=== PATIENT | male | born 1950 | race Caucasian/White ===

== ENCOUNTER 2019-09-06 15:39 | Inpatient (IN) | payer MEDICARE ==
[~2019-09-06] VITALS: Ht 165.1 cm; Wt 67.2 kg
[2019-09-06] MEDS ORDERED: SODIUM CHLORIDE 0.9% 500 ML IV ONE (16:49)
[2019-09-06 17:12] LABS: HEMATOCRIT. 40.7 % (42.0-52.0); HEMOGLOBIN. 14.1 g/dL (14.0-18.0); MEAN CORPUSCULAR HEMOGLOBIN 32.9 pg (28.0-32.0); MEAN CORPUSCULAR VOLUME 95.2 fL (80.0-94.0); MEAN PLATELET VOLUME 9.9 fl (7.4-10.4); MONOCYTES % 5.6 % (2.0-8.0); NEUTROPHILS % 87.4 % (40.0-76.0); RED BLOOD CELL COUNT 4.27 mill/uL (4.7-6.1); RED CELL DISTRIBUTION WIDTH 13.8 % (11.6-14.6)
[2019-09-06 17:14] LABS: INR 1.2; PROTHROMBIN TIME 12.1 sec (9.6-11.0)
[2019-09-06 17:21] LABS: CHLORIDE 91 mEq/L (98-107)
[2019-09-06 17:28] LABS: ETHANOL BLOOD < 10 mg/dL
[2019-09-06 17:56] LABS: CREATINE KINASE 10482 IU/L (39-308)
[2019-09-06] MEDS ORDERED: LORAZEPAM 2MG/ML CPJ IV ONE ×2 (18:00→19:00)
[2019-09-06] MEDS ORDERED: DIPHENHYDRAMINE 50MG/ML VIAL IV ONE (18:45)
[2019-09-06] MEDS ORDERED: SODIUM CHLORIDE 0.9% 2,000 ML IV ONE (19:16)
[2019-09-06] MEDS ORDERED: DOCUSATE SODIUM 100MG CAPSULE PO PRN (20:30)
[2019-09-06] MEDS ORDERED: TRAMADOL 50MG TABLET PO PRN (20:30)
[2019-09-06] MEDS ORDERED: ACETAMINOPHEN 325MG TABLET PO PRN ×2 (20:30)
[2019-09-06] MEDS ORDERED: KETOROLAC 15MG/ML VIAL IV PRN (20:30)
[2019-09-06] MEDS ORDERED: CLONIDINE 0.1MG TABLET PO PRN (20:30)
[2019-09-06] MEDS ORDERED: IPRATROPIUM/ALBUTEROL 0.5-3(2.5)MG/3ML NEB ORI PRN (20:30)
[2019-09-06] MEDS ORDERED: NA PHOS,M-B/NA PHOS,DI-BA ENEMA 118ML PR PRN (20:30)
[2019-09-06] MEDS ORDERED: ONDANSETRON HCL 4MG/2ML INJ IV PRN (20:30)
[2019-09-06] MEDS ORDERED: GUAIFENESIN 200MG/10ML SUGAR FREE UDC PO PRN (20:30)
[2019-09-06] MEDS ORDERED: NITROGLYCERIN 0.4MG TABLET SL SL PRN (20:30)
[2019-09-06] MEDS ORDERED: MAGNESIUM/ALUMINUM HYDROXIDE/SIMETHICONE 30ML UDC PO PRN (20:30)
[2019-09-06 21:34] LABS: HEPATITIS B SURFACE ANTIGEN NEGATIVE
[2019-09-06 21:43] LABS: VITAMIN B12 SERUM 1068 pg/mL (211-911)
[2019-09-06] MEDS ORDERED: CEFTRIAXONE 1 G PREMIX 50 ML IV SCH (22:00)
[2019-09-06 22:03] LABS: HEPATITIS A AB IGM NEGATIVE (NEGATIVE)
[2019-09-06 23:00] VITALS: BP 123/81
[2019-09-06 23:15] VITALS: BP 135/82
[2019-09-06 23:45] VITALS: BP 101/58
[2019-09-07] VITALS (13 sets, daily range): BP systolic 100–154; BP diastolic 52–96
[2019-09-07] MEDS: ASCORBIC ACID 500 MG TABLET PO SCH ×3 (00:03→21:08)
[2019-09-07] MEDS: FAMOTIDINE 20MG TABLET PO SCH ×3 (00:03→21:08)
[2019-09-07] MEDS: SODIUM CHLORIDE 0.9% 1,000 ML IV SCH ×2 (00:03→10:36)
[2019-09-07 00:05] LABS: CREATINE KINASE MB FRACTION 79.9 ng/mL (0.5-3.6)
[2019-09-07 00:34] LABS: CREATINE KINASE > 14000 IU/L (39-308)
[2019-09-07] MEDS ORDERED: CEFTRIAXONE 1 G PREMIX 50 ML IV SCH (02:00)
[2019-09-07 06:52] LABS: BASOPHILS % 0.2 % (0.0-2.0); EOSINOPHILS % 0.2 % (0.0-5.0); HEMATOCRIT. 41.7 % (42.0-52.0); HEMOGLOBIN. 14.1 g/dL (14.0-18.0); LYMPHOCYTES % 20.5 % (20.0-50.0); MEAN CORPUSCULAR HEMOGLOBIN 32.7 pg (28.0-32.0); MEAN CORPUSCULAR VOLUME 96.4 fL (80.0-94.0); MEAN PLATELET VOLUME 10.6 fl (7.4-10.4); MONOCYTES % 7.3 % (2.0-8.0); NEUTROPHILS % 71.8 % (40.0-76.0); RED BLOOD CELL COUNT 4.33 mill/uL (4.7-6.1)
[2019-09-07 06:58] LABS: CHLORIDE 99 mEq/L (98-107)
[2019-09-07 07:03] LABS: PLATELET 46 x1000/uL (130-400)
[2019-09-07 07:06] LABS: PHOSPHORUS 2.5 mg/dL (2.5-4.9)
[2019-09-07 07:11] LABS: CREATINE KINASE MB FRACTION 58.4 ng/mL (0.5-3.6)
[2019-09-07] MEDS ORDERED: POTASSIUM CHLORIDE 20MEQ/PACKET PO NR (07:45)
[2019-09-07 08:04] LABS: CREATINE KINASE 23672 IU/L (39-308)
[2019-09-07] MEDS: ZINC SULFATE 220 MG ( 50 ) CAPSULE PO SCH (09:20)
[2019-09-07] MEDS: CITRIC ACID/SODIUM CITRATE SOLN 15ML UDC PO SCH ×3 (09:20→17:00)
[2019-09-07] MEDS: ASPIRIN 81MG EC TABLET PO SCH (09:20)
[2019-09-07] MEDS ORDERED: LORAZEPAM 2MG/ML CPJ IV NR (10:15)
[2019-09-07 11:33] LABS: PLATELET 46 x1000/uL (130-400)
[2019-09-07] MEDS: CHLORDIAZEPOXIDE 25MG CAPSULE PO SCH ×2 (14:58→21:07)
[2019-09-07 15:38] LABS: *AMPHETAMINES SCREEN URINE NEGATIVE (NEGATIVE); *BARBITURATES SCREEN URINE NEGATIVE (NEGATIVE); *BENZODIAZEPINES SCREEN URINE NEGATIVE (NEGATIVE); *COCAINE SCREEN URINE NEGATIVE (NEGATIVE)
[2019-09-07 15:40] LABS: CANNABINOID URINE SCREEN NEGATIVE (NEGATIVE); METHADONE URINE SCREEN NEGATIVE (NEGATIVE); OPIATES URINE SCREEN NEGATIVE (NEGATIVE); PHENCYCLIDINE URINE SCREEN NEGATIVE (NEGATIVE)
[2019-09-07] MEDS: LORAZEPAM 2MG/ML CPJ IV PRN (16:00)
[2019-09-07] MEDS: ZOLPIDEM TARTRATE 5MG TABLET PO PRN (21:08)
[2019-09-08] VITALS (12 sets, daily range): BP systolic 124–184; BP diastolic 53–116
[2019-09-08] MEDS: SODIUM CHLORIDE 0.9% 1,000 ML IV SCH ×2 (00:42→12:59)
[2019-09-08] MEDS: CEFTRIAXONE 1,000 MG in DEXTROSE 5% WATER 50 ML IV SCH (03:24)
[2019-09-08 07:06] LABS: CHLORIDE 110 mEq/L (98-107)
[2019-09-08 07:07] LABS: BASOPHILS % 0.5 % (0.0-2.0); EOSINOPHILS % 0.4 % (0.0-5.0); HEMATOCRIT. 36.8 % (42.0-52.0); HEMOGLOBIN. 12.4 g/dL (14.0-18.0); LYMPHOCYTES % 28.8 % (20.0-50.0); MEAN CORPUSCULAR HEMOGLOBIN 32.8 pg (28.0-32.0); MEAN CORPUSCULAR VOLUME 97.1 fL (80.0-94.0); MEAN PLATELET VOLUME 10.8 fl (7.4-10.4); MONOCYTES % 7.5 % (2.0-8.0); NEUTROPHILS % 62.8 % (40.0-76.0); RED BLOOD CELL COUNT 3.79 mill/uL (4.7-6.1); RED CELL DISTRIBUTION WIDTH 14.2 % (11.6-14.6)
[2019-09-08] MEDS: CHLORDIAZEPOXIDE 25MG CAPSULE PO SCH ×3 (07:19→21:21)
[2019-09-08 07:55] LABS: PLATELET 48 x1000/uL (130-400)
[2019-09-08] MEDS: ZINC SULFATE 220 MG ( 50 ) CAPSULE PO SCH (08:24)
[2019-09-08] MEDS: NICOTINE 14MG PATCH TD SCH (08:24)
[2019-09-08] MEDS: FAMOTIDINE 20MG TABLET PO SCH ×2 (08:25→21:21)
[2019-09-08] MEDS: ASCORBIC ACID 500 MG TABLET PO SCH ×2 (08:25→21:21)
[2019-09-08] MEDS: FOLIC ACID 1MG TABLET PO SCH (08:25)
[2019-09-08] MEDS: CITRIC ACID/SODIUM CITRATE SOLN 15ML UDC PO SCH ×3 (08:25→17:58)
[2019-09-08] MEDS: MULTIVITAMINS,THER W-MINERALS TABLET PO SCH (08:25)
[2019-09-08] MEDS: ASPIRIN 81MG EC TABLET PO SCH (08:25)
[2019-09-08] MEDS: THIAMINE HCL 100MG TABLET PO SCH (08:25)
[2019-09-08] MEDS ORDERED: POTASSIUM CHLORIDE 20MEQ/PACKET PO NR (09:15)
[2019-09-08] MEDS ORDERED: KCL 20MEQ/100ML PREMIX 100 ML IV ONE (10:00)
[2019-09-08] MEDS: MAGNESIUM OXIDE 400MG TABLET PO SCH (10:12)
[2019-09-08 13:58] LABS: PLATELET ESTIMATE MARKEDLY DECREASED
[2019-09-08] MEDS ORDERED: LIDOCAINE HCL/EPINEPHRINE 1%-EPI 1:100,000 20 ML VIAL INFIL NR (16:00)
[2019-09-08] MEDS: LORAZEPAM 2MG/ML CPJ IV PRN (17:57)
[2019-09-08] MEDS: ZOLPIDEM TARTRATE 5MG TABLET PO PRN (21:21)
[2019-09-09] VITALS (12 sets, daily range): BP systolic 130–162; BP diastolic 60–87
[2019-09-09] MEDS: CEFTRIAXONE 1,000 MG in DEXTROSE 5% WATER 50 ML IV SCH (02:43)
[2019-09-09] MEDS: LORAZEPAM 2MG/ML CPJ IV PRN (04:14)
[2019-09-09] MEDS: SODIUM CHLORIDE 0.9% 1,000 ML IV SCH ×2 (06:01→15:56)
[2019-09-09] MEDS: CHLORDIAZEPOXIDE 25MG CAPSULE PO SCH (06:01)
[2019-09-09 07:05] LABS: CHLORIDE 111 mEq/L (98-107)
[2019-09-09 07:14] LABS: BASOPHILS % 0.4 % (0.0-2.0); EOSINOPHILS % 0.7 % (0.0-5.0); HEMATOCRIT. 34.1 % (42.0-52.0); HEMOGLOBIN. 11.5 g/dL (14.0-18.0); LYMPHOCYTES % 27.6 % (20.0-50.0); MEAN CORPUSCULAR HEMOGLOBIN 32.8 pg (28.0-32.0); MEAN CORPUSCULAR VOLUME 97.2 fL (80.0-94.0); MEAN PLATELET VOLUME 9.5 fl (7.4-10.4); MONOCYTES % 8.7 % (2.0-8.0); NEUTROPHILS % 62.6 % (40.0-76.0); PLATELET 56 x1000/uL (130-400); RED BLOOD CELL COUNT 3.51 mill/uL (4.7-6.1); RED CELL DISTRIBUTION WIDTH 14.3 % (11.6-14.6)
[2019-09-09] MEDS ORDERED: POTASSIUM CHLORIDE 20MEQ TABLET SR PO NR (07:30)
[2019-09-09] MEDS: CITRIC ACID/SODIUM CITRATE SOLN 15ML UDC PO SCH ×3 (08:31→16:12)
[2019-09-09] MEDS: MULTIVITAMINS,THER W-MINERALS TABLET PO SCH (08:31)
[2019-09-09] MEDS: ZINC SULFATE 220 MG ( 50 ) CAPSULE PO SCH (08:31)
[2019-09-09] MEDS: FAMOTIDINE 20MG TABLET PO SCH ×2 (08:31→22:08)
[2019-09-09] MEDS: MAGNESIUM OXIDE 400MG TABLET PO SCH (08:32)
[2019-09-09] MEDS: ASPIRIN 81MG EC TABLET PO SCH (08:32)
[2019-09-09] MEDS: ASCORBIC ACID 500 MG TABLET PO SCH ×2 (08:32→22:08)
[2019-09-09] MEDS: THIAMINE HCL 100MG TABLET PO SCH (08:32)
[2019-09-09] MEDS: FOLIC ACID 1MG TABLET PO SCH (08:32)
[2019-09-09] MEDS: NICOTINE 14MG PATCH TD SCH (08:32)
[2019-09-09] MEDS ORDERED: POTASSIUM CHLORIDE INJ 40 MEQ in DEXT 5% WATER 250 ML IV NR (09:30)
[2019-09-09] MEDS: CHLORDIAZEPOXIDE 5 MG CAPSULE PO SCH ×2 (13:41→22:08)
[2019-09-10] VITALS (12 sets, daily range): BP systolic 103–146; BP diastolic 55–82
[2019-09-10] MEDS: CEFTRIAXONE 1,000 MG in DEXTROSE 5% WATER 50 ML IV SCH (01:43)
[2019-09-10] MEDS: SODIUM CHLORIDE 0.9% 1,000 ML IV SCH ×2 (01:44→21:17)
[2019-09-10] MEDS: CHLORDIAZEPOXIDE 5 MG CAPSULE PO SCH ×3 (06:37→21:18)
[2019-09-10 06:49] LABS: BASOPHILS % 0.6 % (0.0-2.0); EOSINOPHILS % 1.7 % (0.0-5.0); HEMATOCRIT. 36.5 % (42.0-52.0); HEMOGLOBIN. 12.3 g/dL (14.0-18.0); LYMPHOCYTES % 32.5 % (20.0-50.0); MEAN CORPUSCULAR VOLUME 97.9 fL (80.0-94.0); MEAN PLATELET VOLUME 8.9 fl (7.4-10.4); MONOCYTES % 12.4 % (2.0-8.0); NEUTROPHILS % 52.8 % (40.0-76.0); PLATELET 79 x1000/uL (130-400); RED BLOOD CELL COUNT 3.73 mill/uL (4.7-6.1); RED CELL DISTRIBUTION WIDTH 14.4 % (11.6-14.6)
[2019-09-10 07:21] LABS: CHLORIDE 109 mEq/L (98-107)
[2019-09-10 07:48] LABS: PHOSPHORUS 3.1 mg/dL (2.5-4.9)
[2019-09-10 08:01] LABS: CREATINE KINASE 1848 IU/L (39-308)
[2019-09-10] MEDS: ASCORBIC ACID 500 MG TABLET PO SCH ×2 (08:10→21:18)
[2019-09-10] MEDS: FOLIC ACID 1MG TABLET PO SCH (08:10)
[2019-09-10] MEDS: THIAMINE HCL 100MG TABLET PO SCH (08:10)
[2019-09-10] MEDS: CITRIC ACID/SODIUM CITRATE SOLN 15ML UDC PO SCH ×3 (08:10→16:10)
[2019-09-10] MEDS: ASPIRIN 81MG EC TABLET PO SCH (08:10)
[2019-09-10] MEDS: NICOTINE 14MG PATCH TD SCH (08:10)
[2019-09-10] MEDS: MULTIVITAMINS,THER W-MINERALS TABLET PO SCH (08:10)
[2019-09-10] MEDS: ZINC SULFATE 220 MG ( 50 ) CAPSULE PO SCH (08:10)
[2019-09-10] MEDS: FAMOTIDINE 20MG TABLET PO SCH ×2 (08:10→21:18)
[2019-09-10] MEDS: MAGNESIUM OXIDE 400MG TABLET PO SCH (08:10)
[2019-09-10] MEDS ORDERED: POTASSIUM CHLORIDE 20MEQ TABLET SR PO NR (09:00)
[2019-09-10] MEDS ORDERED: MAGNESIUM 1 G PREMIX 100 ML IV NR (09:30)
[2019-09-10] MEDS ORDERED: POTASSIUM CHLORIDE INJ 40 MEQ in DEXT 5% WATER 250 ML IV NR (10:00)
[2019-09-11] VITALS (12 sets, daily range): BP systolic 109–149; BP diastolic 56–98
[2019-09-11] MEDS: CEFTRIAXONE 1,000 MG in DEXTROSE 5% WATER 50 ML IV SCH (01:53)
[2019-09-11] MEDS: CHLORDIAZEPOXIDE 5 MG CAPSULE PO SCH (05:17)
[2019-09-11 06:25] LABS: HEMATOCRIT. 33.8 % (42.0-52.0); HEMOGLOBIN. 11.3 g/dL (14.0-18.0); MEAN CORPUSCULAR HEMOGLOBIN 32.9 pg (28.0-32.0); MEAN CORPUSCULAR VOLUME 98.2 fL (80.0-94.0); MEAN PLATELET VOLUME 9.2 fl (7.4-10.4); PLATELET 94 x1000/uL (130-400); RED BLOOD CELL COUNT 3.45 mill/uL (4.7-6.1); RED CELL DISTRIBUTION WIDTH 14.2 % (11.6-14.6)
[2019-09-11 06:45] LABS: CHLORIDE 108 mEq/L (98-107)
[2019-09-11] MEDS: FAMOTIDINE 20MG TABLET PO SCH ×2 (09:11→20:38)
[2019-09-11] MEDS: ASPIRIN 81MG EC TABLET PO SCH (09:11)
[2019-09-11] MEDS: MAGNESIUM OXIDE 400MG TABLET PO SCH (09:11)
[2019-09-11] MEDS: THIAMINE HCL 100MG TABLET PO SCH (09:11)
[2019-09-11] MEDS: CITRIC ACID/SODIUM CITRATE SOLN 15ML UDC PO SCH ×3 (09:11→17:24)
[2019-09-11] MEDS: ASCORBIC ACID 500 MG TABLET PO SCH ×2 (09:11→20:38)
[2019-09-11] MEDS: ZINC SULFATE 220 MG ( 50 ) CAPSULE PO SCH (09:11)
[2019-09-11] MEDS: FOLIC ACID 1MG TABLET PO SCH (09:11)
[2019-09-11] MEDS: NICOTINE 14MG PATCH TD SCH (09:11)
[2019-09-11] MEDS: SODIUM CHLORIDE 0.9% 1,000 ML IV SCH ×2 (09:16→20:39)
[2019-09-11] MEDS: MULTIVITAMINS,THER W-MINERALS TABLET PO SCH (09:16)
[2019-09-11 22:32] LABS: PLATELET ESTIMATE DECREASED
[2019-09-12] VITALS (19 sets, daily range): BP systolic 128–168; BP diastolic 19–83
[2019-09-12] MEDS: CEFTRIAXONE 1,000 MG in DEXTROSE 5% WATER 50 ML IV SCH (02:37)
[2019-09-12] MEDS: CITRIC ACID/SODIUM CITRATE SOLN 15ML UDC PO SCH ×3 (08:04→17:49)
[2019-09-12] MEDS: NICOTINE 14MG PATCH TD SCH (08:05)
[2019-09-12] MEDS: ZINC SULFATE 220 MG ( 50 ) CAPSULE PO SCH (08:05)
[2019-09-12] MEDS: FAMOTIDINE 20MG TABLET PO SCH ×2 (08:05→20:14)
[2019-09-12] MEDS: FOLIC ACID 1MG TABLET PO SCH (08:05)
[2019-09-12] MEDS: ASPIRIN 81MG EC TABLET PO SCH (08:05)
[2019-09-12] MEDS: MAGNESIUM OXIDE 400MG TABLET PO SCH (08:05)
[2019-09-12] MEDS: ASCORBIC ACID 500 MG TABLET PO SCH ×2 (08:05→20:14)
[2019-09-12] MEDS: THIAMINE HCL 100MG TABLET PO SCH (08:05)
[2019-09-12] MEDS: MULTIVITAMINS,THER W-MINERALS TABLET PO SCH (08:05)
[2019-09-12] MEDS: SODIUM CHLORIDE 0.9% 1,000 ML IV SCH ×2 (10:27→23:56)
[2019-09-12] MEDS ORDERED: CLONIDINE 0.2MG TABLET PO PRN (22:15)
[2019-09-12] MEDS ORDERED: AMLODIPINE 10MG TABLET PO SCH (22:15)
[2019-09-13 00:42] VITALS: BP 151/76
[2019-09-13] MEDS: CEFTRIAXONE 1,000 MG in DEXTROSE 5% WATER 50 ML IV SCH (01:23)
[2019-09-13 01:43] VITALS: BP 139/65
[2019-09-13 02:43] VITALS: BP 113/57
[2019-09-13 03:42] VITALS: BP 126/62
[2019-09-13 04:40] VITALS: BP 126/64
== END 2019-09-13 04:46 | DRG 280 ==
LOC: ER 15:50 → EDBEDREQTM 19:13 → EDBEDREQ 19:13 → EDBEDREQSVC 19:13 → SUPCPDRO 20:20 → EDBEDREQ 20:26 → EDBEDREQTM 20:26 → ENRESERV 21:25 → 3WST 22:31
PROVIDERS: ADMIT Internal Medicine; ATTEND Internal Medicine
DX: I21.4 Non-ST elevation (NSTEMI) myocardial infarction (principal); G92 Toxic encephalopathy; G82.50 Quadriplegia, unspecified; E43 Unspecified severe protein-calorie malnutrition; M62.82 Rhabdomyolysis; E87.1 Hypo-osmolality and hyponatremia; F10.239 Alcohol dependence with withdrawal, unspecified; I50.30 Unspecified diastolic (congestive) heart failure; R47.01 Aphasia; M86.8X1 Other osteomyelitis, shoulder; D64.9 Anemia, unspecified; D69.6 Thrombocytopenia, unspecified; K72.90 Hepatic failure, unspecified without coma; E83.51 Hypocalcemia; F17.210 Nicotine dependence, cigarettes, uncomplicated; E87.6 Hypokalemia; E86.0 Dehydration; S09.90XA Unspecified injury of head, initial encounter; R00.0 Tachycardia, unspecified; E83.42 Hypomagnesemia; I11.0 Hypertensive heart disease with heart failure; K76.0 Fatty (change of) liver, not elsewhere classified; K74.60 Unspecified cirrhosis of liver; R13.10 Dysphagia, unspecified; R47.1 Dysarthria and anarthria; T14.8XXA Other injury of unspecified body region, initial encounter; Z20.828 Contact with and (suspected) exposure to other viral communicable diseases; X58.XXXA Exposure to other specified factors, initial encounter; Z86.73 Personal history of transient ischemic attack (TIA), and cerebral infarction without residual deficits; Z86.718 Personal history of other venous thrombosis and embolism; Y93.89 Activity, other specified; Y92.89 Other specified places as the place of occurrence of the external cause; Y99.8 Other external cause status; Z79.899 Other long term (current) drug therapy; Z68.24 Body mass index [BMI] 24.0-24.9, adult
CPT/HCPCS: 36415; 70551; 71045; 73070; 73100; 73130; 73562; 76700; 80048; 80053; 80061; 80305; 80320; 82040; 82140; 82550; 82553; 82607; 82746; 82962; 83036; 83540; 83550; 83605; 83735; 83880; 84100; 84134; 84145; 84443; 84484; 85025; 85379; 86705; 86709; 86803; 87340; 92610; 93005; 93306; 93970; 97116; 97162; 97166; 99285; J0696; J1200; J2060; J3475; J3480; J3490; J7030; J7060; G0480; U0003-CS

== ENCOUNTER 2021-08-29 15:06 | Inpatient (IN) | payer MEDICARE, MEDICAID ==
[~2021-08-29] VITALS: Ht 165.1 cm; Wt 59.0 kg
[~2021-08-29 15:06] MED LIST: AMLO10TA80 MT; ASCO500T20 PO; ASPI-1160 PO; CLOP75TA15 PO; FAMO40TA70 PO; FERR325T23 PO; FOLI-43 PO; HYDR-4133 PO; LIP40 PO; ZINC220C2 PO
[2021-08-29] MEDS ORDERED: PANTOPRAZOLE SODIUM 40 MG/VIAL IV STA (15:45)
[2021-08-29 16:13] LABS: BASOPHILS % 0.4 % (0.0-2.0); EOSINOPHILS % 0.5 % (0.0-5.0); LYMPHOCYTES % 8.7 % (20.0-50.0); MEAN CORPUSCULAR HEMOGLOBIN 19.3 pg (28.0-32.0); MEAN CORPUSCULAR VOLUME 65.2 fL (80.0-94.0); MEAN PLATELET VOLUME 7.1 fl (7.4-10.4); MONOCYTES % 6.6 % (2.0-8.0); NEUTROPHILS % 83.8 % (40.0-76.0); PLATELET 502 x1000/uL (130-400); RED CELL DISTRIBUTION WIDTH 18.8 % (11.6-14.6)
[2021-08-29 16:18] LABS: CHLORIDE 108 mEq/L (98-107)
[2021-08-29 16:33] LABS: HEMATOCRIT. 19.6 % (42.0-52.0); HEMOGLOBIN. 5.8 g/dL (14.0-18.0)
[2021-08-29 16:45] LABS: INR 1.3; PARTIAL THROMBOPLASTIN TIME 30.6 sec (23.4-31.0); PROTHROMBIN TIME 13.4 sec (9.6-11.0)
[2021-08-29 17:41] LABS: PLATELET ESTIMATE INCREASED
[2021-08-29] MEDS ORDERED: NITROGLYCERIN 0.4MG TABLET SL SL PRN (17:45)
[2021-08-29] MEDS ORDERED: ONDANSETRON HCL 4MG/2ML INJ IV PRN (17:45)
[2021-08-29] MEDS ORDERED: CLONIDINE 0.1MG TABLET PO PRN (17:45)
[2021-08-29] MEDS ORDERED: PANTOPRAZOLE 80 MG in SODIUM CHLORIDE 0.9% 100 ML IV SCH (17:45)
[2021-08-29] MEDS ORDERED: DOCUSATE SODIUM 100MG CAPSULE PO PRN (17:45)
[2021-08-29] MEDS ORDERED: ACETAMINOPHEN 325MG TABLET PO PRN ×2 (17:45)
[2021-08-29] MEDS ORDERED: IPRATROPIUM/ALBUTEROL 0.5-3(2.5)MG/3ML NEB NEB PRN (17:45)
[2021-08-29] MEDS ORDERED: MAGNESIUM/ALUMINUM HYDROXIDE/SIMETHICONE 30ML UDC PO PRN (17:45)
[2021-08-29] MEDS ORDERED: ZOLPIDEM TARTRATE 5MG TABLET PO PRN (17:45)
[2021-08-29] MEDS ORDERED: TRAMADOL 50MG TABLET PO PRN (17:45)
[2021-08-29] MEDS ORDERED: GUAIFENESIN 200MG/10ML SUGAR FREE UDC PO PRN (17:45)
[2021-08-29] MEDS: DEXT 5%/LACTATED RINGERS 1,000 ML IV SCH (18:00)
[2021-08-29] MEDS: PANTOPRAZOLE 80 MG in SODIUM CHLORIDE 0.9% 100 ML IV SCH (19:22)
[2021-08-29] MEDS ORDERED: PANTOPRAZOLE SODIUM 40 MG/VIAL IV NR (19:30)
[2021-08-29 19:48] LABS: VITAMIN B12 SERUM 1022 pg/mL (211-911)
[2021-08-29 19:57] LABS: FOLIC ACID (FOLATE) SERUM > 20.00 ng/mL (>5.38)
[2021-08-30] VITALS (11 sets, daily range): BP systolic 98–130; BP diastolic 46–86
[2021-08-30] MEDS ORDERED: CLON-457 PO (02:32)
[2021-08-30] MEDS ORDERED: DOCU-138 PO (02:32)
[2021-08-30] MEDS ORDERED: GABA-529 PO (02:32)
[2021-08-30] MEDS: PANTOPRAZOLE 80 MG in SODIUM CHLORIDE 0.9% 100 ML IV SCH ×3 (04:43→23:45)
[2021-08-30 06:55] LABS: BASOPHILS % 0.5 % (0.0-2.0); EOSINOPHILS % 0.4 % (0.0-5.0); HEMATOCRIT. 22.5 % (42.0-52.0); HEMOGLOBIN. 7.2 g/dL (14.0-18.0); LYMPHOCYTES % 10.3 % (20.0-50.0); MEAN CORPUSCULAR HEMOGLOBIN 22.5 pg (28.0-32.0); MEAN CORPUSCULAR VOLUME 70.2 fL (80.0-94.0); MEAN PLATELET VOLUME 7.1 fl (7.4-10.4); MONOCYTES % 9.3 % (2.0-8.0); NEUTROPHILS % 79.5 % (40.0-76.0); PLATELET 385 x1000/uL (130-400); RED BLOOD CELL COUNT 3.21 mill/uL (4.7-6.1); RED CELL DISTRIBUTION WIDTH 22.7 % (11.6-14.6)
[2021-08-30 06:59] LABS: CHLORIDE 108 mEq/L (98-107)
[2021-08-30 07:07] LABS: PHOSPHORUS 2.7 mg/dL (2.5-4.9)
[2021-08-30] MEDS: DEXT 5%/LACTATED RINGERS 1,000 ML IV SCH ×2 (07:20→20:26)
[2021-08-31] VITALS: BP 133/61
[2021-08-31 03:21] LABS: HEMATOCRIT 27.9 % (42.0-52.0); HEMOGLOBIN 8.8 g/dL (14.0-18.0)
[2021-08-31 04:00] VITALS: BP 135/53
[2021-08-31 06:38] LABS: CHLORIDE 110 mEq/L (98-107)
[2021-08-31 06:48] LABS: BASOPHILS % 0.4 % (0.0-2.0); EOSINOPHILS % 0.9 % (0.0-5.0); HEMATOCRIT. 32.4 % (42.0-52.0); HEMOGLOBIN. 10.1 g/dL (14.0-18.0); LYMPHOCYTES % 11.2 % (20.0-50.0); MEAN CORPUSCULAR HEMOGLOBIN 23.6 pg (28.0-32.0); MEAN CORPUSCULAR VOLUME 76.1 fL (80.0-94.0); MEAN PLATELET VOLUME 7.4 fl (7.4-10.4); MONOCYTES % 8.2 % (2.0-8.0); NEUTROPHILS % 79.3 % (40.0-76.0); PLATELET 413 x1000/uL (130-400); RED BLOOD CELL COUNT 4.26 mill/uL (4.7-6.1); RED CELL DISTRIBUTION WIDTH 25.3 % (11.6-14.6)
[2021-08-31 08:00] VITALS: BP 104/47
[2021-08-31] MEDS: DEXT 5%/LACTATED RINGERS 1,000 ML IV SCH ×2 (08:18→23:49)
[2021-08-31] MEDS ORDERED: IOHEXOL-300 100 ML BOTTLE ONE (09:20)
[2021-08-31] MEDS: PANTOPRAZOLE 80 MG in SODIUM CHLORIDE 0.9% 100 ML IV SCH ×2 (10:50→20:04)
[2021-08-31 12:00] VITALS: BP 123/47
[2021-08-31] MEDS ORDERED: NALOXONE HCL 0.4MG/ML VIAL IV PRN (15:15)
[2021-08-31] MEDS ORDERED: POTASSIUM CHLORIDE 20MEQ TABLET SR PO NR (15:15)
[2021-08-31] MEDS ORDERED: BISACODYL 10MG SUPP PR NR (15:15)
[2021-08-31 16:00] VITALS: BP 138/51
[2021-08-31] MEDS: SORBITOL 70% SOLN 30ML PO SCH ×3 (16:28→23:49)
[2021-08-31] MEDS: METOCLOPRAMIDE HCL 10MG/2ML VIAL IV SCH ×3 (16:28→23:49)
[2021-08-31 20:00] VITALS: BP 136/57
[2021-09-01] VITALS: BP 130/55
[2021-09-01] MEDS: METOCLOPRAMIDE HCL 10MG/2ML VIAL IV SCH ×4 (03:34→16:00)
[2021-09-01] MEDS: SORBITOL 70% SOLN 30ML PO SCH ×4 (03:34→14:53)
[2021-09-01 04:00] VITALS: BP 124/54
[2021-09-01] MEDS: PANTOPRAZOLE 80 MG in SODIUM CHLORIDE 0.9% 100 ML IV SCH ×2 (05:45→17:32)
[2021-09-01 06:48] LABS: HEMATOCRIT. 32.8 % (42.0-52.0); HEMOGLOBIN. 10.2 g/dL (14.0-18.0); MEAN CORPUSCULAR HEMOGLOBIN 23.2 pg (28.0-32.0); MEAN CORPUSCULAR VOLUME 74.7 fL (80.0-94.0); MEAN PLATELET VOLUME 7.6 fl (7.4-10.4); PLATELET 460 x1000/uL (130-400); RED BLOOD CELL COUNT 4.39 mill/uL (4.7-6.1); RED CELL DISTRIBUTION WIDTH 25.6 % (11.6-14.6)
[2021-09-01 07:18] LABS: CHLORIDE 124 mEq/L (98-107)
[2021-09-01] MEDS: POTASSIUM CHLORIDE 20MEQ TABLET SR PO NR ×2 (09:15→18:03)
[2021-09-01] MEDS ORDERED: PROPOFOL 200MG/20ML VIAL IV ONE (11:17)
[2021-09-01] MEDS ORDERED: MIDAZOLAM HCL 2 MG/2 ML VIAL ONE ×2 (11:18)
[2021-09-01 14:23] LABS: PLATELET ESTIMATE INCREASED
[2021-09-01 16:00] VITALS: BP 127/62
[2021-09-01] MEDS ORDERED: POTASSIUM CHLORIDE 20MEQ TABLET SR PO ONE (17:15)
[2021-09-01] MEDS: DEXT 5%/LACTATED RINGERS 1,000 ML IV SCH (17:33)
[2021-09-01 20:00] VITALS: BP 128/50
[2021-09-02] VITALS: BP 134/58
[2021-09-02] MEDS: DEXT 5%/LACTATED RINGERS 1,000 ML IV SCH (01:09)
[2021-09-02] MEDS: PANTOPRAZOLE 80 MG in SODIUM CHLORIDE 0.9% 100 ML IV SCH ×2 (01:09→13:12)
[2021-09-02 04:00] VITALS: BP 133/58
[2021-09-02 07:04] LABS: BASOPHILS % 0.6 % (0.0-2.0); HEMATOCRIT. 28.9 % (42.0-52.0); HEMOGLOBIN. 8.9 g/dL (14.0-18.0); LYMPHOCYTES % 9.8 % (20.0-50.0); MEAN CORPUSCULAR HEMOGLOBIN 23.4 pg (28.0-32.0); MEAN CORPUSCULAR VOLUME 76.1 fL (80.0-94.0); MEAN PLATELET VOLUME 7.4 fl (7.4-10.4); MONOCYTES % 5.7 % (2.0-8.0); NEUTROPHILS % 83.9 % (40.0-76.0); PLATELET 382 x1000/uL (130-400)
[2021-09-02 07:09] LABS: CHLORIDE 130 mEq/L (98-107)
[2021-09-02 08:00] VITALS: BP_SYST 124; BP_SYST 94; BP_DIAS 55; BP_DIAS 66
[2021-09-02] MEDS ORDERED: POTASSIUM CHLORIDE 20MEQ/PACKET PO NR (09:15)
[2021-09-02] MEDS: DEXT 5%/0.9% NACL 1,000 ML IV SCH ×2 (09:42→18:45)
[2021-09-02 12:00] VITALS: BP 145/61
[2021-09-02 13:21] LABS: HEPATITIS B SURFACE ANTIGEN NEGATIVE
[2021-09-02 14:08] LABS: HEPATITIS B SURFACE AB 24.7 mIU/mL
[2021-09-02 14:18] LABS: HEPATITIS B SURFACE ANTIGEN NEGATIVE
[2021-09-02 16:00] VITALS: BP 136/58
[2021-09-02] MEDS ORDERED: IRON SUCROSE COMPLEX 100 MG/5 ML ML IV NR (16:45)
[2021-09-02 20:00] VITALS: BP 149/59
[2021-09-03] VITALS: BP 105/48
[2021-09-03 04:00] VITALS: BP 123/49
[2021-09-03 06:34] LABS: BASOPHILS % 0.3 % (0.0-2.0); EOSINOPHILS % 0.8 % (0.0-5.0); HEMATOCRIT. 24.1 % (42.0-52.0); LYMPHOCYTES % 13.2 % (20.0-50.0); MEAN CORPUSCULAR HEMOGLOBIN 23.5 pg (28.0-32.0); MEAN PLATELET VOLUME 7.6 fl (7.4-10.4); MONOCYTES % 6.4 % (2.0-8.0); NEUTROPHILS % 79.3 % (40.0-76.0); PLATELET 288 x1000/uL (130-400); RED BLOOD CELL COUNT 3.17 mill/uL (4.7-6.1); RED CELL DISTRIBUTION WIDTH 25.7 % (11.6-14.6)
[2021-09-03] MEDS: DEXT 5%/0.9% NACL 1,000 ML IV SCH ×2 (06:45→17:56)
[2021-09-03 06:50] LABS: CHLORIDE 123 mEq/L (98-107)
[2021-09-03 07:03] LABS: HEMOGLOBIN. 7.4 g/dL (14.0-18.0)
[2021-09-03 08:00] VITALS: BP 130/54
[2021-09-03] MEDS: PANTOPRAZOLE SODIUM 40 MG/VIAL IV SCH (09:23)
[2021-09-03 12:00] VITALS: BP 128/64
[2021-09-03 16:00] VITALS: BP 139/94
[2021-09-03 20:00] VITALS: BP 144/67
[2021-09-04] VITALS: BP 143/58
[2021-09-04] MEDS: DEXT 5%/0.9% NACL 1,000 ML IV SCH ×3 (01:47→23:02)
[2021-09-04 04:00] VITALS: BP 138/55
[2021-09-04 06:52] LABS: BASOPHILS % 0.4 % (0.0-2.0); EOSINOPHILS % 1.3 % (0.0-5.0); HEMATOCRIT. 25.7 % (42.0-52.0); LYMPHOCYTES % 16.8 % (20.0-50.0); MEAN CORPUSCULAR HEMOGLOBIN 23.6 pg (28.0-32.0); MEAN CORPUSCULAR VOLUME 75.7 fL (80.0-94.0); MEAN PLATELET VOLUME 7.6 fl (7.4-10.4); MONOCYTES % 6.6 % (2.0-8.0); NEUTROPHILS % 74.9 % (40.0-76.0); PLATELET 253 x1000/uL (130-400); RED BLOOD CELL COUNT 3.39 mill/uL (4.7-6.1); RED CELL DISTRIBUTION WIDTH 26.2 % (11.6-14.6)
[2021-09-04 07:50] LABS: CHLORIDE 115 mEq/L (98-107)
[2021-09-04 08:00] VITALS: BP 127/78
[2021-09-04] MEDS: PANTOPRAZOLE SODIUM 40 MG/VIAL IV SCH (08:53)
[2021-09-04 12:00] VITALS: BP 118/79
[2021-09-04 16:00] VITALS: BP 132/68
[2021-09-04 20:00] VITALS: BP 153/65
[2021-09-05] VITALS (8 sets, daily range): BP systolic 134–150; BP diastolic 55–81
[2021-09-05] MEDS ORDERED: MAGNESIUM CITRATE 300ML SOLUTION PO NR ×2 (02:00)
[2021-09-05 04:07] LABS: HIV SCREEN 4G Non Reactive (Non Reactive)
[2021-09-05] MEDS: DEXT 5%/0.9% NACL 1,000 ML IV SCH (08:18)
[2021-09-05] MEDS: PANTOPRAZOLE SODIUM 40 MG/VIAL IV SCH (08:23)
[2021-09-05 10:18] LABS: BASOPHILS % 0.5 % (0.0-2.0); EOSINOPHILS % 0.7 % (0.0-5.0); HEMATOCRIT. 28.6 % (42.0-52.0); HEMOGLOBIN. 8.9 g/dL (14.0-18.0); LYMPHOCYTES % 15.6 % (20.0-50.0); MEAN CORPUSCULAR HEMOGLOBIN 24.2 pg (28.0-32.0); MEAN CORPUSCULAR VOLUME 77.4 fL (80.0-94.0); MEAN PLATELET VOLUME 7.4 fl (7.4-10.4); NEUTROPHILS % 77.2 % (40.0-76.0); PLATELET 219 x1000/uL (130-400); RED CELL DISTRIBUTION WIDTH 25.4 % (11.6-14.6)
[2021-09-05] MEDS ORDERED: FENTANYL CITRATE/PF 50MCG/ML 2ML VIAL ONE ×2 (10:22→11:28)
[2021-09-05] MEDS ORDERED: PHENYLEPHRINE HCL 10 MG/ML 1ML (IV VIAL) IV ONE (10:22)
[2021-09-05] MEDS ORDERED: PROPOFOL 200MG/20ML VIAL IV ONE (10:22)
[2021-09-05] MEDS ORDERED: METRONIDAZOLE 500 MG PREMIX 100 ML IV ONE (10:29)
[2021-09-05 10:36] LABS: CHLORIDE 112 mEq/L (98-107)
[2021-09-05] MEDS ORDERED: MORPHINE SULFATE 4 MG/ML CPJ (NOT FOR IM USE) IV PRN (10:45)
[2021-09-05] MEDS ORDERED: BUPIVACAINE HCL 0.5% (5MG/ML) 50ML ONE (10:55)
[2021-09-05] MEDS ORDERED: ROCURONIUM BROMIDE 10MG/ML VIAL 5ML IV ONE (10:56)
[2021-09-05] MEDS ORDERED: KCL 20MEQ/100ML PREMIX 100 ML IV NR (12:00)
[2021-09-05] MEDS ORDERED: NEOSTIGMINE METHYLSULFATE 1MG/ML 10 ML VIAL ONE (12:22)
[2021-09-05] MEDS ORDERED: GLYCOPYRROLATE 0.2 MG/ML 2ML VIAL ONE (12:23)
[2021-09-05] MEDS ORDERED: ONDANSETRON HCL 4MG/2ML INJ IV PRN (13:15)
[2021-09-05] MEDS ORDERED: FENTANYL CITRATE/PF 50MCG/ML 2ML VIAL IV PRN (13:15)
[2021-09-05] MEDS ORDERED: HYDROMORPHONE HCL/PF 2MG/ML CPJ IV PRN (13:15)
[2021-09-05] MEDS: DEXT 5%/0.45% NACL KCL 20MEQ/L 1,000 ML IV SCH (13:25)
[2021-09-05] MEDS: CEFAZOLIN 1000MG PREMIX 50 ML IV SCH ×2 (15:57→21:13)
[2021-09-05] MEDS: METRONIDAZOLE 500 MG PREMIX 100 ML IV SCH (17:19)
[2021-09-05 19:29] LABS: PLATELET ESTIMATE NORMAL
[2021-09-05] MEDS: FAMOTIDINE 20MG/2ML VIAL IV SCH (20:48)
[2021-09-05] MEDS: MORPHINE SULFATE 2 MG/ML CPJ (NOT FOR IM USE) IV PRN (20:55)
[2021-09-06] VITALS: BP 129/61
[2021-09-06] MEDS: DEXT 5%/0.45% NACL KCL 20MEQ/L 1,000 ML IV SCH ×3 (00:25→18:41)
[2021-09-06] MEDS: METRONIDAZOLE 500 MG PREMIX 100 ML IV SCH ×2 (03:08→11:03)
[2021-09-06 04:00] VITALS: BP 131/61
[2021-09-06] MEDS: CEFAZOLIN 1000MG PREMIX 50 ML IV SCH (06:17)
[2021-09-06 06:30] LABS: HEMATOCRIT. 27.6 % (42.0-52.0); HEMOGLOBIN. 8.8 g/dL (14.0-18.0); MEAN CORPUSCULAR HEMOGLOBIN 24.4 pg (28.0-32.0); MEAN CORPUSCULAR VOLUME 76.1 fL (80.0-94.0); MEAN PLATELET VOLUME 8.7 fl (7.4-10.4); PLATELET 232 x1000/uL (130-400); RED BLOOD CELL COUNT 3.62 mill/uL (4.7-6.1); RED CELL DISTRIBUTION WIDTH 26.1 % (11.6-14.6)
[2021-09-06 07:11] LABS: CHLORIDE 111 mEq/L (98-107)
[2021-09-06 08:00] VITALS: BP 143/68
[2021-09-06] MEDS: FAMOTIDINE 20MG/2ML VIAL IV SCH ×2 (08:41→21:02)
[2021-09-06] MEDS: PANTOPRAZOLE SODIUM 40 MG/VIAL IV SCH (08:41)
[2021-09-06 12:00] VITALS: BP 143/65
[2021-09-06 16:00] VITALS: BP 153/65
[2021-09-06 16:15] LABS: PLATELET ESTIMATE NORMAL
[2021-09-06 20:00] VITALS: BP 100/70
[2021-09-06] MEDS: MORPHINE SULFATE 2 MG/ML CPJ (NOT FOR IM USE) IV PRN (21:06)
[2021-09-07] VITALS: BP 153/68
[2021-09-07 04:00] VITALS: BP 114/65
[2021-09-07] MEDS: DEXT 5%/0.45% NACL KCL 20MEQ/L 1,000 ML IV SCH ×2 (05:00→14:45)
[2021-09-07 06:56] LABS: HEMATOCRIT. 28.1 % (42.0-52.0); MEAN CORPUSCULAR HEMOGLOBIN 24.3 pg (28.0-32.0); MEAN CORPUSCULAR VOLUME 76.2 fL (80.0-94.0); MEAN PLATELET VOLUME 8.3 fl (7.4-10.4); PLATELET 236 x1000/uL (130-400); RED BLOOD CELL COUNT 3.69 mill/uL (4.7-6.1); RED CELL DISTRIBUTION WIDTH 27.4 % (11.6-14.6)
[2021-09-07 07:09] LABS: CHLORIDE 109 mEq/L (98-107)
[2021-09-07] MEDS: FAMOTIDINE 20MG/2ML VIAL IV SCH (09:28)
[2021-09-07] MEDS: PANTOPRAZOLE SODIUM 40 MG/VIAL IV SCH (09:28)
[2021-09-07 12:00] VITALS: BP 160/70
[2021-09-07 13:32] LABS: PLATELET ESTIMATE NORMAL
[2021-09-07] MEDS: MORPHINE SULFATE 2 MG/ML CPJ (NOT FOR IM USE) IV PRN (14:45)
[2021-09-07 16:00] VITALS: BP 128/71
[2021-09-07 20:50] VITALS: BP 154/71
[2021-09-08 00:19] VITALS: BP 144/67
[2021-09-08] MEDS: DEXT 5%/0.45% NACL KCL 20MEQ/L 1,000 ML IV SCH ×3 (00:43→21:48)
[2021-09-08 04:00] VITALS: BP 134/67
[2021-09-08 07:40] LABS: HEMOGLOBIN. 8.5 g/dL (14.0-18.0); MEAN CORPUSCULAR HEMOGLOBIN 24.2 pg (28.0-32.0); MEAN CORPUSCULAR VOLUME 77.3 fL (80.0-94.0); MEAN PLATELET VOLUME 8.4 fl (7.4-10.4); PLATELET 242 x1000/uL (130-400); RED BLOOD CELL COUNT 3.49 mill/uL (4.7-6.1); RED CELL DISTRIBUTION WIDTH 27.5 % (11.6-14.6)
[2021-09-08 07:46] LABS: CHLORIDE 106 mEq/L (98-107)
[2021-09-08 08:00] VITALS: BP 142/57
[2021-09-08] MEDS: PANTOPRAZOLE SODIUM 40 MG/VIAL IV SCH (08:55)
[2021-09-08 10:31] LABS: PLATELET ESTIMATE NORMAL
[2021-09-08 12:00] VITALS: BP 164/68
[2021-09-08 16:00] VITALS: BP 120/52
[2021-09-08 20:00] VITALS: BP 152/67
[2021-09-09] VITALS: BP 146/74
[2021-09-09 04:00] VITALS: BP 144/72
[2021-09-09 05:30] LABS: HEMATOCRIT. 26.7 % (42.0-52.0); HEMOGLOBIN. 8.3 g/dL (14.0-18.0); MEAN CORPUSCULAR VOLUME 77.3 fL (80.0-94.0); MEAN PLATELET VOLUME 8.5 fl (7.4-10.4); PLATELET 235 x1000/uL (130-400); RED BLOOD CELL COUNT 3.46 mill/uL (4.7-6.1); RED CELL DISTRIBUTION WIDTH 26.8 % (11.6-14.6)
[2021-09-09 06:24] LABS: CHLORIDE 107 mEq/L (98-107)
[2021-09-09 08:00] VITALS: BP 149/70
[2021-09-09] MEDS: PANTOPRAZOLE SODIUM 40 MG/VIAL IV SCH (09:03)
[2021-09-09] MEDS: DEXT 5%/0.45% NACL KCL 20MEQ/L 1,000 ML IV SCH ×2 (09:03→17:00)
[2021-09-09 12:00] VITALS: BP 149/71
[2021-09-09 12:01] LABS: PLATELET ESTIMATE NORMAL
[2021-09-09] MEDS: MORPHINE SULFATE 2 MG/ML CPJ (NOT FOR IM USE) IV PRN (13:30)
[2021-09-09 16:00] VITALS: BP 126/69
[2021-09-09 20:00] VITALS: BP 156/64
[2021-09-10] VITALS (31 sets, daily range): BP systolic 27–171; BP diastolic 15–147
[2021-09-10] MEDS ORDERED: VASOPRESSIN 20 UNIT in SODIUM CHLORIDE 0.9% 99 ML IV PRN (08:00)
[2021-09-10] MEDS ORDERED: MIDAZOLAM HCL 100 MG in SODIUM CHLORIDE 0.9% 80 ML IV PRN (08:00)
[2021-09-10] MEDS ORDERED: NALOXONE HCL 0.4MG/ML VIAL IV PRN (08:00)
[2021-09-10] MEDS ORDERED: CALCIUM CHLORIDE 1GM/10ML SYR IV ONE (08:26)
[2021-09-10] MEDS ORDERED: EPINEPHRINE 0.1MG/ML (1:10,000) 10ML SYR ONE (08:26)
[2021-09-10] MEDS ORDERED: SODIUM BICARBONATE 8.4% 1 MEQ/ML 50ML SYR IV ONE (08:26)
[2021-09-10] MEDS ORDERED: DEXTROSE 50% WATER 50ML SYRINGE IV ONE (08:26)
[2021-09-10 08:36] LABS: BG CARBOXYHEMOGLOBIN 0.3 % (0.5-1.5); BG DEOXYHEMOGLOBIN 9.9 % (0.0-5.0); BG HCO3 ACT 9.2 mmol/L (22.0-26.0); BG METHEMOGLOBIN 0.2 % (0.0-1.5); BG OXYGEN SATURATION 90.1 % (92.0-98.5); BG OXYHEMOGLOBIN 89.6 % (94.0-97.0); BG PCO2 49.3 mmHg (35.0-45.0); BG PO2 92.1 mmHg (75.0-100.0); BG SAMPLE SITE RIGHT RADIAL; BG TOTAL HEMOGLOBIN 9.7 g/dL (12.0-18.0); BG VENT MODE VENT - AC
[2021-09-10] MEDS: PHENYLEPHRINE 100 MG in DEXT 5% WATER 240 ML IV PRN ×2 (08:37→16:08)
[2021-09-10] MEDS ORDERED: LIDOCAINE HCL 1% 10 MG/ML 10ML VIAL ONE (08:38)
[2021-09-10] MEDS ORDERED: SODIUM BICARBONATE 8.4% 1 MEQ/ML 50ML SYR IV SCH (09:00)
[2021-09-10] MEDS: PANTOPRAZOLE SODIUM 40 MG/VIAL IV SCH (09:53)
[2021-09-10] MEDS ORDERED: SODIUM BICARBONATE 150 MEQ in DEXTROSE 5% WATER 1,000 ML IV SCH (10:00)
[2021-09-10] MEDS: EPINEPHRINE 10 MG in SODIUM CHLORIDE 0.9% 240 ML IV PRN ×3 (10:09→15:13)
[2021-09-10] MEDS ORDERED: DOPAMINE 800MG PREMIX (DOUBLE) 250 ML IV PRN (10:45)
[2021-09-10 11:18] LABS: BG BASE EXCESS -15.1 mmol/L (-2.0-2.0); BG CARBOXYHEMOGLOBIN 0.3 % (0.5-1.5); BG DEOXYHEMOGLOBIN 9.4 % (0.0-5.0); BG FRACTION INSPIRED OXYGEN 100; BG HCO3 ACT 11.7 mmol/L (22.0-26.0); BG METHEMOGLOBIN 0.3 % (0.0-1.5); BG OXYGEN SATURATION 90.5 % (92.0-98.5); BG PCO2 31.3 mmHg (35.0-45.0); BG PH 7.192 (7.350-7.450); BG PO2 71.3 mmHg (75.0-100.0); BG SAMPLE SITE LEFT RADIAL; BG TOTAL HEMOGLOBIN 8.2 g/dL (12.0-18.0); BG VENT MODE VENT - AC
[2021-09-10] MEDS ORDERED: SODIUM BICARBONATE 8.4% 1 MEQ/ML 50ML SYR IV NR (11:30)
[2021-09-10 11:43] LABS: PHOSPHORUS 5.9 mg/dL (2.5-4.9)
[2021-09-10] MEDS ORDERED: DEXTROSE 50% WATER 50ML SYRINGE IV NR (12:00)
[2021-09-10] MEDS ORDERED: ENOXAPARIN 40MG/0.4ML SYR SUBCUT SCH (12:00)
[2021-09-10 12:36] LABS: BASOPHILS % 0.2 % (0.0-2.0); EOSINOPHILS % 0.1 % (0.0-5.0); HEMATOCRIT. 23.3 % (42.0-52.0); MEAN CORPUSCULAR HEMOGLOBIN 23.8 pg (28.0-32.0); MEAN CORPUSCULAR VOLUME 87.6 fL (80.0-94.0); MEAN PLATELET VOLUME 7.8 fl (7.4-10.4); MONOCYTES % 2.3 % (2.0-8.0); NEUTROPHILS % 86.4 % (40.0-76.0); PLATELET 151 x1000/uL (130-400); RED BLOOD CELL COUNT 2.66 mill/uL (4.7-6.1); RED CELL DISTRIBUTION WIDTH 27.1 % (11.6-14.6)
[2021-09-10] MEDS: NOREPINEPHRINE 32 MG in DEXT 5% WATER 218 ML IV PRN ×2 (12:41→16:09)
[2021-09-10 12:51] LABS: INR 3.4; PROTHROMBIN TIME 33.5 sec (9.6-11.0)
[2021-09-10 12:54] LABS: HEMOGLOBIN. 6.3 g/dL (14.0-18.0)
[2021-09-10] MEDS ORDERED: MEROPENEM 1,000 MG in SODIUM CHLORIDE 0.9% 100 ML IV SCH (13:00)
[2021-09-10] MEDS ORDERED: VANCOMYCIN 1250MG in DEXTROSE 5% WATER 250ML IV SCH (14:00)
[2021-09-10 14:04] LABS: D-DIMER > 35.20 mg/L FEU (<0.50)
[2021-09-10] MEDS ORDERED: DEXTROSE 50% WATER 50ML SYRINGE IV PRN (14:30)
[2021-09-10] MEDS ORDERED: DEXT 10% WATER 1,000 ML IV SCH (15:30)
[2021-09-10] MEDS ORDERED: PANTOPRAZOLE SODIUM 40 MG/VIAL IV SCH (21:00)
[2021-09-11] MEDS ORDERED: VANCOMYCIN 1GM PMX (XELLIA) 200 ML IV SCH (06:00)
== END 2021-09-10 16:28 | DRG 329 ==
LOC: ER 15:06 → SUPCPDRO 15:33 → 7WST 20:48 → EDBEDREQ 20:49 → EDBEDREQTM 20:49 → ENRESERV 22:49 → MICUSO 09-10 07:30
PROVIDERS: ADMIT Internal Medicine; ATTEND Internal Medicine
PROC: 0DB68ZX Excision of Stomach, Via Natural or Artificial Opening Endoscopic, Diagnostic (ICD-10-PCS; 2021-09-01)
PROC: 0DBH8ZX Excision of Cecum, Via Natural or Artificial Opening Endoscopic, Diagnostic (ICD-10-PCS; 2021-09-01)
PROC: 0DBN8ZX Excision of Sigmoid Colon, Via Natural or Artificial Opening Endoscopic, Diagnostic (ICD-10-PCS; 2021-09-01)
PROC: 0DB98ZX Excision of Duodenum, Via Natural or Artificial Opening Endoscopic, Diagnostic (ICD-10-PCS; 2021-09-01)
PROC: 30233N1 Transfusion of Nonautologous Red Blood Cells into Peripheral Vein, Percutaneous Approach (ICD-10-PCS; principal; 2021-09-05)
PROC: 0DTF0ZZ Resection of Right Large Intestine, Open Approach (ICD-10-PCS; 2021-09-05)
PROC: 0DTN0ZZ Resection of Sigmoid Colon, Open Approach (ICD-10-PCS; 2021-09-05)
PROC: 0DTP0ZZ Resection of Rectum, Open Approach (ICD-10-PCS; 2021-09-05)
PROC: 5A1935Z Respiratory Ventilation, Less than 24 Consecutive Hours (ICD-10-PCS; 2021-09-10)
PROC: 0BH17EZ Insertion of Endotracheal Airway into Trachea, Via Natural or Artificial Opening (ICD-10-PCS; 2021-09-10)
PROC: 05HY33Z Insertion of Infusion Device into Upper Vein, Percutaneous Approach (ICD-10-PCS; 2021-09-10)
PROC: 5A12012 Performance of Cardiac Output, Single, Manual (ICD-10-PCS; 2021-09-10)
DX: C19 Malignant neoplasm of rectosigmoid junction (principal); E43 Unspecified severe protein-calorie malnutrition; J96.00 Acute respiratory failure, unspecified whether with hypoxia or hypercapnia; D62 Acute posthemorrhagic anemia; E87.2 Acidosis; I82.511 Chronic embolism and thrombosis of right femoral vein; E87.0 Hyperosmolality and hypernatremia; J81.1 Chronic pulmonary edema; T82.898A Other specified complication of vascular prosthetic devices, implants and grafts, initial encounter; I46.9 Cardiac arrest, cause unspecified; Z20.822 Contact with and (suspected) exposure to COVID-19; D50.9 Iron deficiency anemia, unspecified; E03.9 Hypothyroidism, unspecified; E78.00 Pure hypercholesterolemia, unspecified; F10.10 Alcohol abuse, uncomplicated; F32.A Depression, unspecified; I25.10 Atherosclerotic heart disease of native coronary artery without angina pectoris; K76.0 Fatty (change of) liver, not elsewhere classified; K82.8 Other specified diseases of gallbladder; N28.1 Cyst of kidney, acquired; K76.89 Other specified diseases of liver; E05.90 Thyrotoxicosis, unspecified without thyrotoxic crisis or storm; E80.6 Other disorders of bilirubin metabolism; E78.5 Hyperlipidemia, unspecified; R74.01 Elevation of levels of liver transaminase levels; I73.9 Peripheral vascular disease, unspecified; E87.6 Hypokalemia; K57.30 Diverticulosis of large intestine without perforation or abscess without bleeding; K64.8 Other hemorrhoids; D12.0 Benign neoplasm of cecum; I11.9 Hypertensive heart disease without heart failure; K29.70 Gastritis, unspecified, without bleeding; I25.2 Old myocardial infarction; Z79.02 Long term (current) use of antithrombotics/antiplatelets; Z86.73 Personal history of transient ischemic attack (TIA), and cerebral infarction without residual deficits; Z89.611 Acquired absence of right leg above knee; Z68.21 Body mass index [BMI] 21.0-21.9, adult; Z89.612 Acquired absence of left leg above knee; Z87.891 Personal history of nicotine dependence; Y83.2 Surgical operation with anastomosis, bypass or graft as the cause of abnormal reaction of the patient, or of later complication, without mention of misadventure at the time of the procedure
CPT/HCPCS: 31500; 36415; 36573; 36600; 71045; 74177; 80048; 80053; 80076; 82248; 82270; 82375; 82378; 82607; 82728; 82746; 82805; 82962; 82977; 83540; 83550; 83605; 83735; 83880; 84100; 84145; 84443; 85014; 85018; 85025; 85379; 86703; 86705; 86709; 86803; 86850; 86900; 86920; 87340; 87389; 87426; 88304; 88305; 88307; 88312; 88313; 92950; 93005; 93306; 93970; 94002; 94640; 94667; 97161; 99291; C1725; C1893; C9113; J0690; J1170; J1265; J2185; J2250; J2270; J2370; J2704; J2710; J2765; J3010; J3370; J3480; J3490; J7040; J7042; J7050; J7060; J7070; P9016; Q9967